=== PATIENT | male | born 1960 | race Caucasian/White ===

== ENCOUNTER 2017-12-01 12:35 | Day surgery (SDC) | END 2017-12-01 15:30 | disposition home or self-care (01) ==

== ENCOUNTER 2019-06-27 12:11 | Day surgery (SDC) | payer OTHER ==
[~2019-06-27] VITALS: Ht 172.7 cm; Wt 74.2 kg
[~2019-06-27 12:11] MED LIST: ASPI-535 PO; DONEPEZIL; LACTULOSE; LIPITOR; LISI10TA2 PO; LORA-444 PO; LORA5SOL74 PO; LOSARTAN; RESPERIDONE; TRAZODONE
[2019-06-27 14:35] VITALS: BP 158/70; PULSE 60; RESP 26
[2019-06-27] MEDS ORDERED: FENTAnyl 50 MCG/ML VIAL ONE (15:42)
[2019-06-27] MEDS ORDERED: PROPOFOL 20 ML ONE ×2 (15:42→16:43)
[2019-06-27 17:32] VITALS: BP 124/66; RESP 20
== END 2019-06-27 19:16 | disposition home or self-care (01) ==
LOC: GIL 12:11
PROVIDERS: ATTEND Internal Medicine Gastroenterology
DX: D12.7 Benign neoplasm of rectosigmoid junction (principal); K20.8 Other esophagitis; K76.6 Portal hypertension; K31.89 Other diseases of stomach and duodenum; I10 Essential (primary) hypertension
CPT/HCPCS: 88305; J3010